=== PATIENT | male | born 1995 ===

== ENCOUNTER 2019-07-29 11:24 | Emergency (ER) | payer OTHER ==
[2019-07-29 11:48] VITALS: BP 139/80
--- NOTE | 2019-07-29 12:21 | UC ---
Skin Complaint HPI - HPI Summary HPI Summary: Patient presents to urgent care for evaluation wound is left lower abdomen. Patient states about 7 days ago he thought he had a pimple or boil. Patient states he squeezed it. Patient states he felt some bloody pus out. Patient states he covered with antibiotic ointment and a Band-Aid. Patient states markedly improved but still little bit tender. No further drainage. Patient wanted to have it checked and see if it "in the "no fevers or chills. No history of MRSA. Patient is not immunocompromised. He has not taken analgesic. Patient's medications as entered in the EMR by triage nurse reviewed this visit. - History of Current Complaint Chief Complaint: UCSkin Time Seen by Provider: 07/29/19 12:13 Stated Complaint: SKIN COMPLAINT Hx Obtained From: Patient Pain Intensity: 6 - Allergy/Home Medications Allergies/Adverse Reactions: Allergies Allergy/AdvReac Type Severity Reaction Status Date / Time No Known Allergies Allergy Verified 07/29/19 11:48 PMH/Surg Hx/FS Hx/Imm Hx Previously Healthy: Yes - Surgical History Surgical History: None - Family History Known Family History: Positive: Non-Contributory - Social History Occupation: Employed Full-time Lives: With Family Alcohol Use: Occasionally Substance Use Type: None Smoking Status (MU): Heavy Every Day Tobacco Smoker Review of Systems All Other Systems Reviewed And Are Negative: Yes Constitutional: Positive: Negative Skin: Positive: Other - Left lower abdomen skin wound Physical Exam - Summary Physical Exam Summary: Vital Signs Reviewed: Yes A+Ox3, no distress Eyes: Conjunctiva Clear ENT: Hearing grossly normal neck: supple Respiratory: Positive: No respiratory distress, No accessory muscle use Cardiovascular: skin color reflect adequate perfusion abd soft + BS nt/nd no guarding Musculoskeletal Exam: FALLON x 4 without difficulty Neurological: Positive: Alert, ambulatory without difficulty Psychological: Positive: Normal Response To examiner Skin: Positive: left lower abdomen, under skin fold pt with 2x2 cm area of erythema with central scab. No fluctuance. No drainage. mild induration mild tenderness - at location rubbed by sophie Triage Information Reviewed: Yes Vital Signs: Initial Vital Signs Temp 98.1 F 07/29/19 11:43 Pulse 87 07/29/19 11:43 Resp 18 07/29/19 11:43 BP 139/80 07/29/19 11:43 Pulse Ox 99 07/29/19 11:43 Course/Dx - Course Course Of Treatment: Patient presents urgent care for evaluation of old on his left lower abdomen. Patient states it was her 7 days ago. Patient states it look like a deep pimple that he squeezed and got out some bloody's drainage. Patient states since this time it has scabbed over. No further drainage. Patient states there is still some mild tenderness and erythema. Patient went to get checked. Patient is not immunocompromised and no exposure to MRSA. On exam vital signs are stable. Patient does have a 2 x 2 centimeter area of erythema under his skin fold that rubs on jeans . No fluctuatation mild induration. Will start patient on a back spray recommend warm soaks. Reviewed with patient signs and symptoms of worsening infection return precautions. Motrin and Tylenol for pain. Patient comfortable with plan. Patient declined analgesia at the urgent care. - Diagnoses Provider Diagnosis: Wound cellulitis Discharge ED - Sign-Out/Discharge Documenting (check all that apply): Patient Departure All imaging exams completed and their final reports reviewed: No Studies - Discharge Plan Condition: Stable Disposition: HOME Prescriptions: Sulfamethox/Trimethoprim DS* [Bactrim DS 800/160 TAB*] 1 tab PO BID #14 tab Patient Education Materials: Acute Wounds (ED) Referrals: No Primary Care Phys,NOPCP [Primary Care Provider] - Additional Instructions: - Apply warm water soaks (warm water or warm epsom salt soaks) for 10 minutes, 2 -3 times a day - take antibiotics 2 times a day as prescribed until gone - it is recommended you apply a bandage or tuck in a shirt so your jeans are not rubbing against the inflammed area - if you have increased pain, drainage, fever, increased red area, red streaking , or any other concerns it is recommended you go to to your primary doctor or return here - Billing Disposition and Condition Condition: STABLE Disposition: Home
== END 2019-07-29 12:30 | disposition home or self-care (01) ==
LOC: UCEAST 11:24
DX: S31.104A Unspecified open wound of abdominal wall, left lower quadrant without penetration into peritoneal cavity, initial encounter (principal); L03.311 Cellulitis of abdominal wall; F17.290 Nicotine dependence, other tobacco product, uncomplicated; X58.XXXA Exposure to other specified factors, initial encounter; Y92.9 Unspecified place or not applicable
CPT/HCPCS: 99202; G0463